=== PATIENT | female | born 1985 | race Hispanic/Latino ===

== ENCOUNTER 2019-01-05 11:23 | Emergency (ER) | payer OTHER ==
--- NOTE | 2019-01-05 11:41 | Event Note ---
ED Screening Note Date of service: 01/05/19 Time: 11:36 ED Screening Note: 33 y/o female comes in for BRBPR last night s/p surgery Friday 1 week ago. This initial assessment/diagnostic orders/clinical plan/treatment(s) is/are subject to change based on patients health status, clinical progression and re- assessment by fellow clinical providers in the ED. Further treatment and workup at subsequent clinical providers discretion. Patient/guardian urged not to elope from the ED as their condition may be serious if not clinically assessed and managed. Initial orders include: Labs Main
[2019-01-05] MEDS ORDERED: SODIUM CHLORIDE 0.9% 1000 ML 1,000 ML IV ONE (12:24)
[2019-01-05] MEDS ORDERED: ONDANSETRON 4 MG/2 ML INJ IV ONE (12:24)
[2019-01-05 12:30] LABS: Basophils % (Auto) 0.4 % (0.0-1.8); Eosinophils % (Auto) 0.3 % (0.0-4.3); Hematocrit 38.9 % (30.3-42.9); Hemoglobin 13.4 gm/dl (10.1-14.3); Lymphocytes # (Auto) 1.2 K/mm3 (1.2-5.4); Lymphocytes % (Auto) 19.2 % (13.4-35.0); Mean Corpuscular HGB Conc 35 % (30-34); Mean Corpuscular Volume 100 fl (79-97); Monocytes # (Auto) 0.6 K/mm3 (0.0-0.8); Monocytes % (Auto) 8.7 % (0.0-7.3); Platelet Count 199 K/mm3 (140-440); Red Blood Count 3.89 M/mm3 (3.65-5.03); Red Cell Distribution Width 12.3 % (13.2-15.2)
[2019-01-05 12:42] LABS: INR 1.03 (0.87-1.13)
[2019-01-05 12:43] LABS: Partial Thromboplastin Time 32.7 Sec. (24.2-36.6)
[2019-01-05 12:51] LABS: Alanine Aminotransferase 22 units/L (7-56); Albumin 4.5 g/dL (3.9-5); BUN/Creatinine Ratio 13; Blood Urea Nitrogen 8 mg/dL (7-17); Calcium 9.6 mg/dL (8.4-10.2); Hemolysis Index 5
--- NOTE | 2019-01-05 12:53 | Emergency Department Report ---
<MADAI CROWELL - Last Filed: 01/05/19 12:47> ED GI Bleed HPI - General Chief complaint: GI Bleed Stated complaint: RECTAL BLEEDING/DOC ORDERED VISIT Time Seen by Provider: 01/05/19 11:36 Source: patient Mode of arrival: Ambulatory Limitations: No Limitations - History of Present Illness Initial comments: This is a 33-year-old white female who presents to the ER complaining of rectal bleeding started last night with 3 episodes this morning. Patient states she had stent placement one week ago to improve blood flow to her pelvic region and also to her lower extremities. She was started on Plavix 75 mg daily and daily baby aspirin. Location: suprapubic Radiation: back Severity scale (0 -10): 4 Consistency: intermittent Associated Symptoms: abdominal pain, nausea, vomiting - Related Data Previous Rx's Medication Instructions Recorded Last Taken Type Hydrocort/Pramoxine [Proctofoam-Hc] 10 gm [place] DAILY #5 can 01/05/19 Unknown Rx Allergies Allergy/AdvReac Type Severity Reaction Status Date / Time Sulfa (Sulfonamide Allergy Swelling Verified 01/05/19 11:29 Antibiotics) NSAIDS (Non-Steroidal AdvReac Diarrhea Verified 01/05/19 11:40 Anti-Inflamma ED Review of Systems Comment: All other systems reviewed and negative ED Past Medical Hx - Past Medical History Previous Medical History?: Yes Additional medical history: Pelvic congestion syndrome - Surgical History Past Surgical History?: Yes Additional Surgical History: x2. illiac vein stent - Social History Smoking Status: Never Smoker Substance Use Type: None - Medications Home Medications: Home Medications Medication Instructions Recorded Confirmed Last Taken Type Hydrocort/Pramoxine [Proctofoam-Hc] 10 gm AL DAILY #5 can 01/05/19 Unknown Rx ED Physical Exam - General Limitations: No Limitations General appearance: alert, in no apparent distress - Head Head exam: Present: atraumatic - Eye Eye exam: Present: normal appearance - ENT ENT exam: Present: normal exam - Respiratory Respiratory exam: Present: normal lung sounds bilaterally - Cardiovascular Cardiovascular Exam: Present: regular rate - GI/Abdominal GI/Abdominal exam: Present: soft - Rectal Rectal exam: Present: decreased rectal tone, heme (+) stool, hemorrhoids - External exam: Present: normal external exam - Extremities Exam Extremities exam: Present: normal inspection, normal capillary refill. Absent: pedal edema, joint swelling, calf tenderness - Neurological Exam Neurological exam: Present: alert, oriented X3 - Psychiatric Psychiatric exam: Present: normal affect ED Medical Decision Making - Lab Data Result diagrams: 01/05/19 12:11 ED Disposition Clinical Impression: Lower GI bleed Disposition: DC-01 TO HOME OR SELFCARE Condition: Stable Prescriptions: Hydrocort/Pramoxine [Proctofoam-Hc] 10 gm AL DAILY #5 can Referrals: CIRA WEBB MD [Primary Care Provider] - 3-5 Days Forms: Accompanied Note <EMMANUEL SADLER - Last Filed: 01/05/19 16:49> ED Review of Systems ROS: Stated complaint: RECTAL BLEEDING/DOC ORDERED VISIT Other details as noted in HPI ED Physical Exam - Rectal Rectal exam: Present: hemorrhoids (no obvious bleeding from external hemorrhoids) ED Course Vital Signs 01/05/19 01/05/19 01/05/19 11:36 12:09 12:15 Temperature 97.7 F Pulse Rate 103 H 75 92 H Respiratory 18 14 13 Rate Blood Pressure 100/72 117/79 Blood Pressure [Left] O2 Sat by Pulse 96 100 99 Oximetry 01/05/19 01/05/19 01/05/19 12:26 12:30 12:47 Temperature Pulse Rate 72 92 H 69 Respiratory 14 11 L 14 Rate Blood Pressure 111/80 111/80 Blood Pressure 123/85 123/85 [Left] O2 Sat by Pulse 100 100 90 Oximetry 01/05/19 01/05/19 01/05/19 13:00 13:15 13:30 Temperature Pulse Rate 65 69 64 Respiratory 16 11 L 15 Rate Blood Pressure 107/65 120/71 115/67 Blood Pressure [Left] O2 Sat by Pulse 100 100 100 Oximetry 01/05/19 01/05/19 01/05/19 13:45 14:00 14:15 Temperature Pulse Rate 70 68 73 Respiratory 13 20 12 Rate Blood Pressure 112/72 115/71 99/68 Blood Pressure [Left] O2 Sat by Pulse 98 100 Oximetry 01/05/19 01/05/19 01/05/19 14:24 14:30 14:45 Temperature Pulse Rate 77 81 Respiratory 13 14 11 L Rate Blood Pressure 91/67 110/78 Blood Pressure [Left] O2 Sat by Pulse 99 100 Oximetry 01/05/19 01/05/19 14:54 15:00 Temperature Pulse Rate 63 Respiratory 13 11 L Rate Blood Pressure 106/64 Blood Pressure [Left] O2 Sat by Pulse 100 Oximetry ED Medical Decision Making - Lab Data Result diagrams: 01/05/19 12:11 01/05/19 12:11 Lab Results 01/05/19 01/05/19 01/05/19 Range/Units 12:11 12:11 12:11 WBC 6.4 (4.5-11.0) K/mm3 RBC 3.89 (3.65-5.03) M/mm3 Hgb 13.4 (10.1-14.3) gm/dl Hct 38.9 (30.3-42.9) % MCV 100 H (79-97) fl MCH 35 H (28-32) pg MCHC 35 H (30-34) % RDW 12.3 L (13.2-15.2) % Plt Count 199 (140-440) K/mm3 Lymph % (Auto) 19.2 (13.4-35.0) % [place] % (Auto) 8.7 H (0.0-7.3) % Eos % (Auto) 0.3 (0.0-4.3) % Baso % (Auto) 0.4 (0.0-1.8) % Lymph # 1.2 (1.2-5.4) K/mm3 [place] # 0.6 (0.0-0.8) K/mm3 Eos # 0.0 (0.0-0.4) K/mm3 Baso # 0.0 (0.0-0.1) K/mm3 Seg Neutrophils % 71.4 H (40.0-70.0) % Seg Neutrophils # 4.6 (1.8-7.7) K/mm3 PT 13.4 (12.2-14.9) Sec. INR 1.03 (0.87-1.13) APTT 32.7 (24.2-36.6) Sec. Sodium 137 (137-145) mmol/L Potassium 3.7 (3.6-5.0) mmol/L Chloride 99.8 (98-107) mmol/L Carbon Dioxide 23 (22-30) mmol/L Anion Gap 18 mmol/L BUN 8 (7-17) mg/dL Creatinine 0.6 L (0.7-1.2) mg/dL Estimated GFR > 60 ml/min BUN/Creatinine Ratio 13 % Glucose 93 (65-100) mg/dL Calcium 9.6 (8.4-10.2) mg/dL Total Bilirubin 0.40 (0.1-1.2) mg/dL AST 22 (5-40) units/L ALT 22 (7-56) units/L Alkaline Phosphatase 46 (35-129) units/L Total Protein 7.3 (6.3-8.2) g/dL Albumin 4.5 (3.9-5) g/dL Albumin/Globulin Ratio 1.6 % HCG, Qual (Negative) Urine Color (Yellow) Urine Turbidity (Clear) Urine pH (5.0-7.0) Ur Specific [place] (1.003-1.030) Urine Protein (Negative) mg/dL Urine Glucose (UA) (Negative) mg/dL Urine Ketones (Negative) mg/dL Urine Blood (Negative) Urine Nitrite (Negative) Urine Bilirubin (Negative) Urine Urobilinogen (<2.0) mg/dL Ur Leukocyte Esterase (Negative) Urine WBC (Auto) (0.0-6.0) /HPF Urine RBC (Auto) (0.0-6.0) /HPF U Epithel Cells (Auto) (0-13.0) /HPF Blood Type Antibody Screen 01/05/19 01/05/19 01/05/19 Range/Units 12:11 13:06 14:14 WBC (4.5-11.0) K/mm3 RBC (3.65-5.03) M/mm3 Hgb (10.1-14.3) gm/dl Hct (30.3-42.9) % MCV (79-97) fl MCH (28-32) pg MCHC (30-34) % RDW (13.2-15.2) % Plt Count (140-440) K/mm3 Lymph % (Auto) (13.4-35.0) % [place] % (Auto) (0.0-7.3) % Eos % (Auto) (0.0-4.3) % Baso % (Auto) (0.0-1.8) % Lymph # (1.2-5.4) K/mm3 [place] # (0.0-0.8) K/mm3 Eos # (0.0-0.4) K/mm3 Baso # (0.0-0.1) K/mm3 Seg Neutrophils % (40.0-70.0) % Seg Neutrophils # (1.8-7.7) K/mm3 PT (12.2-14.9) Sec. INR (0.87-1.13) APTT (24.2-36.6) Sec. Sodium (137-145) mmol/L Potassium (3.6-5.0) mmol/L Chloride (98-107) mmol/L Carbon Dioxide (22-30) mmol/L Anion Gap mmol/L BUN (7-17) mg/dL Creatinine (0.7-1.2) mg/dL Estimated GFR ml/min BUN/Creatinine Ratio % Glucose (65-100) mg/dL Calcium (8.4-10.2) mg/dL Total Bilirubin (0.1-1.2) mg/dL AST (5-40) units/L ALT (7-56) units/L Alkaline Phosphatase (35-129) units/L Total Protein (6.3-8.2) g/dL Albumin (3.9-5) g/dL Albumin/Globulin Ratio % HCG, Qual Negative (Negative) Urine Color Straw (Yellow) Urine Turbidity Clear (Clear) Urine pH 8.0 H (5.0-7.0) Ur Specific [place] 1.004 (1.003-1.030) Urine Protein <15 mg/dl (Negative) mg/dL Urine Glucose (UA) Neg (Negative) mg/dL Urine Ketones Neg (Negative) mg/dL Urine Blood Neg (Negative) Urine Nitrite Neg (Negative) Urine Bilirubin Neg (Negative) Urine Urobilinogen < 2.0 (<2.0) mg/dL Ur Leukocyte Esterase Neg (Negative) Urine WBC (Auto) < 1.0 (0.0-6.0) /HPF Urine RBC (Auto) 1.0 (0.0-6.0) /HPF U Epithel Cells (Auto) 5.0 (0-13.0) /HPF Blood Type A POSITIVE Antibody Screen Negative - Radiology Data CT ABDOMEN AND PELVIS WITH CONTRAST HISTORY: Rectal bleeding following vascular stent placement. COMPARISON: None TECHNIQUE: Routine abdominal and pelvic CT exam performed following intravenous contrast administration. The patient received 100 mL of IV Omnipaque 300. All CT scans at this location are performed using CT dose reduction for ALARA by means of automated exposure control. FINDINGS: CT ABDOMEN: Lung Bases: No significant abnormality. Liver: No significant abnormality. Biliary: No significant abnormality. Spleen: No significant abnormality. Unenlarged. Pancreas: No significant abnormality. Adrenals: No significant abnormality. Kidneys: No significant abnormality. Lymphatics: No lymphadenopathy. Vasculature: There is a vascular stent in the left iliac vein without evidence of abnormal stent placement or extravascular placement. Bowel/Peritoneum: No significant abnormality. No free air. No free fluid. CT PELVIC: : No significant abnormality. Lymphatics: No lymphadenopathy. Osseous Structures: No aggressive appearing osseous lesions. Additional Findings: None IMPRESSION: 1. No findings to explain rectal bleeding by CT. 2. Left iliac venous stent appears appropriately positioned. Signer Name: Tristin Lowe MD - Medical Decision Making Patient is a 33-year-old female who is currently on Plavix and aspirin secondary to having a iliac stent placed. The patient notices some rectal bleeding. There were some clots present. Patient's laboratory studies are within normal limits. Patient had a slightly low blood pressure on arrival however she is very stable after receiving just 1 L of normal saline. Patient's likely has an internal hemorrhoid that may have bled. CTs did not show any obvious source of bleeding. There is no swelling to the colon and no masses seen. Stents appeared within normal limits and it did not appear to be any vas cular leakage. Patient be discharged home with follow-up with her GI doctor. Critical care attestation.: If time is entered above; I have spent that time in minutes in the direct care of this critically ill patient, excluding procedure time. ED Disposition Is pt being admited?: No Does the pt Need Aspirin: No Time of Disposition: 16:47
[2019-01-05 14:02] LABS: Bilirubin,Urine NEG (Negative); Blood,Urine NEG (Negative); Color,Urine Straw (Yellow); Protein,Urine <15 mg/dL mg/dL (Negative); Urobilinogen,Urine < 2.0 mg/dL (<2.0); WBC,Urine < 1.0 /HPF (0.0-6.0)
[2019-01-05] MEDS ORDERED: MORPHINE 4 MG/1 ML INJ IV ONE (14:14)
--- NOTE | 2019-01-05 15:45 | Cat Scan Report ---
CT ABDOMEN AND PELVIS WITH CONTRAST HISTORY: Rectal bleeding following vascular stent placement. COMPARISON: None TECHNIQUE: Routine abdominal and pelvic CT exam performed following intravenous contrast administrat ion. The patient received 100 mL of IV Omnipaque 300. All CT scans at this location are performed usi ng CT dose reduction for ALARA by means of automated exposure control. FINDINGS: CT ABDOMEN: Lung Bases: No significant abnormality. Liver: No significant abnormality. Biliary: No significant abnormality. Spleen: No significant abnormality. Unenlarged. Pancreas: No significant abnormality. Adrenals: No significant abnormality. Kidneys: No significant abnormality. Lymphatics: No lymphadenopathy. Vasculature: There is a vascular stent in the left iliac vein without evidence of abnormal stent plac ement or extravascular placement. Bowel/Peritoneum: No significant abnormality. No free air. No free fluid. CT PELVIC: : No significant abnormality. Lymphatics: No lymphadenopathy. Osseous Structures: No aggressive appearing osseous lesions. Additional Findings: None IMPRESSION: 1. No findings to explain rectal bleeding by CT. 2. Left iliac venous stent appears appropriately positioned. Signer Name: Tristin Lowe MD Signed: 01/05/2019 3:40 PM Workstation Name: [id number]
--- NOTE | 2019-01-05 16:32 | Gastroenterology Consultation ---
History of Present Illness - Reason for Consult Consult date: 01/05/19 hematochezia Requesting physician: EMMANUEL SADLER - History of Present Illness Patient is a 33 y/o female with PMH of pelvic congestion syndrome with recent iliac vein stent placement (on ADA and Plavix) who presented to ED with c/o rectal bleeding to which GI has been consulted. This afternoon patient was resting in bed w/o acute distress. She report bright red blood mixed with brown stool x 3 episodes this morning follow BMs. No hematemesis or melena. Admits to continued lower pelvic discomfort from recent vascular surgery and mild nausea but denies fever, wt loss, CP, SOB, vomiting, or constipation. Patient is previously known to our service and followed by Dr. Ware with last OV 11/10/18 for chronic diarrhea/generalized abd discomfort thought to be due to IBS-D with colonoscopy in 2016 with normal results (no signs of IBD). Past History Past Medical History: other (Pelvic congestion syndrome, IBS-D) Past Surgical History: (x2), Other (iliac vein stent) Social history: other (marijuana). denies: smoking, alcohol abuse Medications and Allergies Allergies Allergy/AdvReac Type Severity Reaction Status Date / Time Sulfa (Sulfonamide Allergy Swelling Verified 01/05/19 11:29 Antibiotics) NSAIDS (Non-Steroidal AdvReac Diarrhea Verified 01/05/19 11:40 Anti-Inflamma Home Medications Medication Instructions Recorded Confirmed Last Taken Type Hydrocort/Pramoxine [Proctofoam-Hc] 10 gm [place] DAILY #5 can 01/05/19 Unknown Rx traMADoL [Ultram] 50 mg PO Q6HR PRN #12 tablet 01/05/19 Unknown Rx Active Meds: medications reviewed/updated as required Review of Systems - Review of Systems All systems: negative Gastrointestinal: hematochezia Exam - Constitutional Vital Signs: Temp Pulse Resp BP Pulse Ox 97.7 F 63 11 L 106/64 100 01/05/19 11:36 01/05/19 15:00 01/05/19 15:00 01/05/19 15:00 01/05/19 15:00 General appearance: no acute distress - EENT Eyes: PERRL, EOM intact - Respiratory Respiratory effort: normal Respiratory: bilateral: CTA - Cardiovascular Rhythm: regular - Gastrointestinal General gastrointestinal: Present: soft, non-tender, non-distended, normal bowel sounds Rectal Exam: other (internal/external hemorrhoids, no blood-customer services supervisor present during exam (Courtney RN)) - Integumentary Integumentary: Present: warm, dry - Neurologic Neurological: alert and oriented x3 - Labs CBC & Chem 7: 01/05/19 12:11 01/05/19 12:11 Lab Results: Laboratory Results - last 24 hr 01/05/19 01/05/19 01/05/19 12:11 12:11 12:11 WBC 6.4 RBC 3.89 Hgb 13.4 Hct 38.9 MCV 100 H MCH 35 H MCHC 35 H RDW 12.3 L Plt Count 199 Lymph % (Auto) 19.2 [place] % (Auto) 8.7 H Eos % (Auto) 0.3 Baso % (Auto) 0.4 Lymph # 1.2 [place] # 0.6 Eos # 0.0 Baso # 0.0 Seg Neutrophils % 71.4 H Seg Neutrophils # 4.6 PT 13.4 INR 1.03 APTT 32.7 Sodium 137 Potassium 3.7 Chloride 99.8 Carbon Dioxide 23 Anion Gap 18 BUN 8 Creatinine 0.6 L Estimated GFR > 60 BUN/Creatinine Ratio 13 Glucose 93 Calcium 9.6 Total Bilirubin 0.40 AST 22 ALT 22 Alkaline Phosphatase 46 Total Protein 7.3 Albumin 4.5 Albumin/Globulin Ratio 1.6 HCG, Qual Urine Color Urine Turbidity Urine pH Ur Specific [place] Urine Protein Urine Glucose (UA) Urine Ketones Urine Blood Urine Nitrite Urine Bilirubin Urine Urobilinogen Ur Leukocyte Esterase Urine WBC (Auto) Urine RBC (Auto) U Epithel Cells (Auto) Blood Type Antibody Screen 01/05/19 01/05/19 01/05/19 12:11 13:06 14:14 WBC RBC Hgb Hct MCV MCH MCHC RDW Plt Count Lymph % (Auto) [place] % (Auto) Eos % (Auto) Baso % (Auto) Lymph # [place] # Eos # Baso # Seg Neutrophils % Seg Neutrophils # PT INR APTT Sodium Potassium Chloride Carbon Dioxide Anion Gap BUN Creatinine Estimated GFR BUN/Creatinine Ratio Glucose Calcium Total Bilirubin AST ALT Alkaline Phosphatase Total Protein Albumin Albumin/Globulin Ratio HCG, Qual Negative Urine Color Straw Urine Turbidity Clear Urine pH 8.0 H Ur Specific [place] 1.004 Urine Protein <15 mg/dl Urine Glucose (UA) Neg Urine Ketones Neg Urine Blood Neg Urine Nitrite Neg Urine Bilirubin Neg Urine Urobilinogen < 2.0 Ur Leukocyte Esterase Neg Urine WBC (Auto) < 1.0 Urine RBC (Auto) 1.0 U Epithel Cells (Auto) 5.0 Blood Type A POSITIVE Antibody Screen Negative Assessment and Plan 1.hematochezia 2.H/o IBS-D -afebrile -WBC WNL -plt/INR WNL -H/H WNL (13.4/38.9) -abd CT w/o acute findings (iliac venous stent in place) -last colonoscopy 2015 with normal results except internal hemorrhoids -patient reports bright red blood mixed with stool x 3 episodes today following BMs. No hematemesis or melena. Rectal exam showed internal/external hemorrhoids but no blood -etiology-likely antorectal in origin (hemorrhoids) -clinically, patient is HD stable. -no plan for repeat scope at this time -start on steroid suppositories (proctosol) for hemorrhoids -okay to resume anticoagulant given recent iliac stent placement (hold for overt bleeding) -continue supportive care -patient okay to be d/c per GI standpoint with f/u in clinic in ~2 weeks (instructions given to pt to return to ED if overt bleeding develops)
[2019-01-05 17:25] VITALS: BP 133/88
[2019-01-05] MEDS ORDERED: HYDROCORTISONE 2.5% RECT CREAM 28.35 GM PR SCH (22:00)
== END 2019-01-05 17:20 | disposition home or self-care (01) ==
LOC: ED 11:23
DX: K62.5 Hemorrhage of anus and rectum (principal); Z79.899 Other long term (current) drug therapy; Z90.49 Acquired absence of other specified parts of digestive tract; Z88.1 Allergy status to other antibiotic agents; Z88.6 Allergy status to analgesic agent
CPT/HCPCS: 36415; 74177; 80053; 81001; 84703; 85025; 85610; 85730; 86850; 86900; 86901; 96374; 96375; 99284; J2270; J2405; J7030; Q9967

== ENCOUNTER 2021-10-17 07:17 | Day surgery (SDC) | payer OTHER ==
[~2021-10-17 07:17] MED LIST: ACETAMINOPHEN 500 MG TAB PO SCH; LACTATED RINGERS 1,000 ML IV SCH; MIDAZOLAM 2 MG/2 ML INJ IV NR; SCOPOLAMINE TRANSDERMAL PATCH 72 HR TD NR
[2021-10-17] MEDS ORDERED: LIDOCAINE MPF (2%) 20 MG/1 ML VIAL 5 ML ONE (08:29)
[2021-10-17] MEDS ORDERED: propofoL 200 MG/20 ML VIAL IV ONE (08:29)
--- NOTE | 2021-10-17 08:29 | Short Stay Summary ---
Short Stay Documentation Date of service: 10/17/21 Narrative H&P: 36-year-old -3-1-4 with dysfunctional uterine bleeding. The patient has attempted medical management without significant improvement of her symptoms. She underwent ultrasound with unremarkable findings. Endometrial biopsy was benign. - History Principal diagnosis: Dysfunctional uterine bleeding Past Medical History: other (SVT) Past Surgical History: , Other (Stent placement; bilateral tubal ligation) Social history: - Allergies and Medications Current Medications: Allergies Sulfa (Sulfonamide Antibiotics) Allergy (Verified 01/05/19 11:29) Swelling NSAIDS (Non-Steroidal Anti-Inflamma Adverse Reaction (Verified 10/12/21 16:56) Diarrhea, RASH NARCOTICS Adverse Reaction (Uncoded 10/12/21 16:56) Vomiting Home Medications Medication Instructions Recorded Confirmed Last Taken Type Guanfacine HCl [Intuniv] 2.5 mg PO BID 10/12/21 10/12/21 Unknown History Active Medications Acetaminophen (Acetaminophen 500 Mg Tab) 1,000 mg PO PREOP [place] Stop: 10/17/21 23:59 Lactated Ringer's (Lactated Ringers) 1,000 mls @ 100 mls/hr IV DIRECT [place] Stop: 10/17/21 23:59 Midazolam HCl (Midazolam 2 Mg/2 Ml Inj) 2 mg IV PREOP NR Stop: 10/17/21 23:59 Scopolamine (Scopolamine Transdermal Patch 72 Hr) 1 each TD PREOP NR Stop: 10/17/21 23:59 - Physical exam General appearance: no acute distress Integumentary: no rash HEENT: Atraumatic Lungs: Clear to auscultation Breasts: deferred Heart: Regular rate Gastrointestinal: normal Female Genitourinary: deferred Rectal Exam: deferred - Brief post op/procedure progress note Date of procedure: 10/17/21 Pre-op diagnosis: Dysfunctional uterine bleeding Post-op diagnosis: same Procedure: Hysteroscopy and endometrial ablation via NovaSure Anesthesia: KOJOA Surgeon: LILY GLEZ Estimated blood loss: minimal Pathology: none Condition: stable - Hospital course Hospital course: Patient was admitted the day of surgery underwent a hysteroscopy endometrial ablation. Please see operative note for details of surgery. Her postoperative course was uneventful. - Disposition Condition at discharge: Good Disposition: 01 HOME / SELF CARE / HOMELESS Short Stay Discharge Plan Activity: other (Pelvic rest for 1 week) Diet: regular Additional Instructions: Pelvic rest for 1 week Patient may follow-up with Dr. Saint Noriega in 2 to 4 weeks
[2021-10-17] MEDS ORDERED: ONDANSETRON 4 MG/2 ML INJ IV PRN (08:35)
--- NOTE | 2021-10-17 08:35 | Anesthesia Day of Surgery ---
Anesthesia Day of Surgery - Day of Surgery Patient Examined: Yes Patient H&P Reviewed: Yes Patient is NPO: Yes
--- NOTE | 2021-10-17 08:35 | Anesthesia Consultation ---
Anesthesia Consult and Med Hx Date of service: 10/17/21 - Airway Anesthetic Teeth Evaluation: Good ROM Head & Neck: Adequate Mental/Hyoid Distance: Adequate Mallampati Class: Class II Intubation Access Assessment: Probably Good - Pre-Operative Health Status ASA Pre-Surgery Classification: ASA2 Proposed Anesthetic Plan: General - Pulmonary Hx Smoking: No Hx Respiratory Symptoms: No Hx Sleep Apnea: No (VIRGIE PRE SCREEN NEGATIVE) - Cardiovascular System Hx Hypertension: No Hx Heart Attack/AMI: No Hx Percutaneous Transluminal Coronary Angioplasty (PTCA): No Hx Cardia Arrhythmia: Yes (hx SVT s/p ablation 2020) Hx Pacemaker: No Hx Internal Defibrillator: No Hx Peripheral Vascular Disease: Yes (vascular stents 2/2 pelvic congestion) - Central Nervous System CVA: No - Endocrine Hx Renal Disease: No Hx Liver Disease: No Hx Insulin Dependent Diabetes: No Hx Non-Insulin Dependent Diabetes: No Hx Thyroid Disease: No - Additional Comments Anesthesia Medical History Comments: No hx anesthetic complications.
[2021-10-17] MEDS ORDERED: KETAMINE/STERILE WATER 50 MG/ML SYRINGE ONE (09:20)
[2021-10-17] MEDS ORDERED: ONDANSETRON 4 MG/2 ML INJ ONE (09:31)
[2021-10-17] MEDS ORDERED: LACTATED RINGERS 1,000 ML ONE (09:31)
[2021-10-17] MEDS ORDERED: dexAMETHasone 20 MG/5 ML VIAL ONE (09:31)
--- NOTE | 2021-10-17 09:42 | Operative Report ---
Operative Report Operative Report: Date of procedure: October 17, 2021 Pre-operative diagnosis: Dysfunctional uterine bleeding Post-operative diagnosis: Same as above Procedure name(s): Hysteroscopy; endometrial ablation via NovaSure Surgeon: Daina Doran M.D. Sample Display Preparer: None Anesthesia: LMA Findings normal endometrial cavity Indication: 36-year-old -3-1-4 with dysfunctional uterine bleeding. Procedure The patient was taken to the operating room and given general tracheal anesthesia without complication. The patient was prepped and draped in a normal sterile fashion. A bivalve speculum was placed in the patient's vagina single- tooth tenaculums placed on the anterior lip of the cervix. The cervical os was dilated with graduated dilators. A uterine sound was inserted. The hysteroscope was then placed. Insufflation of the uterine cavity was performed with normal saline. Gen. survey of the uterine cavity revealed normal uterine and endometrial cavity. The hysteroscope was then removed. The NovaSure device was then inserted. The endometrial length was 5.0 and the uterine width was 2.6. The device was engaged and it passed the surveillance of the uterine cavity. The NovaSure device was then deployed with a energy of 72 W that lasted for 1 minute 44 seconds. The NovaSure device was then removed. The hysteroscope was again reinserted. There was evidence of charring of the endometrial surface. The remainder of the vaginal instruments were then removed atraumatically. The patient was then successfully extubated taken to the recovery room. All sponge laps and needle counts were correct 2.
[2021-10-17] MEDS ORDERED: SODIUM CHLORIDE 0.9% IRRIG SOLN 3000 ML IR ONE (09:57)
[2021-10-17] MEDS: HYDROmorphone 0.5 MG/0.5 ML INJ IV PRN ×2 (10:19→10:47)
[2021-10-17 12:10] VITALS: BP 148/68
--- NOTE | 2021-10-17 13:03 | Post Anesthesia Evaluation ---
- Post Anesthesia Evaluation Patient Participated: Yes Airway Patent: Yes Stable Respiratory Function: Yes Nausea/Vomiting: Yes (antiemetic gven) Temp > 96.8F: Yes Pain Manageable: Yes Adequeate Hydration: Yes Anesthesia Complications: No
== END 2021-10-17 11:40 | disposition home or self-care (01) ==
LOC: OR 07:17
PROVIDERS: ATTEND Obstetrics & Gynecology
DX: N93.8 Other specified abnormal uterine and vaginal bleeding (principal); H40.9 Unspecified glaucoma; I73.9 Peripheral vascular disease, unspecified; I42.9 Cardiomyopathy, unspecified; F41.9 Anxiety disorder, unspecified; D64.9 Anemia, unspecified; Z88.2 Allergy status to sulfonamides; Z88.8 Allergy status to other drugs, medicaments and biological substances; Z79.899 Other long term (current) drug therapy; Z98.51 Tubal ligation status; Z98.890 Other specified postprocedural states
CPT/HCPCS: 58563; 81025; J1100; J1170; J2250; J2405; J2704; J3490; J7120; J7121